=== PATIENT | female | born 1975 | race Caucasian/White ===

== ENCOUNTER → 2016-10-09 | Outpatient (CLI) | payer OTHER ==
[~2016-10-09] MED LIST: ALPR1TAB2 PO; AMOX1TAB64 PO; CEFT2FRO2 IV; CIPR500S2 PO; CITA20TA9 PO; CITA40TA12 PO; ENOX120D3 SQ; ENOX40SY4 SQ; ESCI10TA10; HYDR1TAB20 PO; HYDR25TA6 PO; IBUP800T PO; LISI-167; LORA1TAB PO; METR500T PO; OMNIPAQUE 350 MG/ML, 100ML BOTTLE ONE; ONDA4TAB7 PO; OXYC15TA PO; OXYC5TAB3 PO; PROM25SU34 RC; VERA120T5 PO; VERA240C2 PO
== END | disposition home or self-care (01) ==
LOC: RAD 12:40
PROVIDERS: ATTEND Internal Medicine Hematology & Oncology
DX: C18.7 Malignant neoplasm of sigmoid colon (principal); R91.8 Other nonspecific abnormal finding of lung field; Z98.82 Breast implant status
CPT/HCPCS: 71260; 74177; Q9967

== ENCOUNTER → 2016-12-10 | Outpatient (CLI) | payer OTHER ==
[~2016-12-10] MED LIST changes: -ENOX120D3 SQ; +ENOX120S4 SQ
== END | disposition home or self-care (01) ==
LOC: CFH 12:45
PROVIDERS: ATTEND Internal Medicine Hematology & Oncology
DX: C18.7 Malignant neoplasm of sigmoid colon (principal); R91.8 Other nonspecific abnormal finding of lung field; J98.4 Other disorders of lung; N26.1 Atrophy of kidney (terminal); D18.09 Hemangioma of other sites; K76.9 Liver disease, unspecified; Z98.82 Breast implant status
CPT/HCPCS: 71260; 74177; Q9967